=== PATIENT | male | born 1980 | race Two or more races ===

== ENCOUNTER 2024-09-18 18:08 | Emergency (ER) | payer MEDICAID, SELFPAY ==
[2024-09-18 18:36] VITALS: BP 131/78; PULSE 91; RESP 18; TEMP 36.9; O2SAT 94; BMI 24.5
--- NOTE | 2024-09-18 18:49 | EKG_ITS ---
[facility] Test Date: 2024-09-18 Pat Name: CECILE MUÑOZ Department: Room: - Gender: Male Cvicu Rn: : 1980 Requested By: Smith Collins ([facility]) Order Number: [id number] Reading MD: Smith Collins ([facility]) Measurements Intervals Irwin Rate: 95 P: 59 MN: 139 QRS: 28 QRSD: 84 T: 57 QT: 344 QTc: 434 Interpretive Statements SINUS RHYTHM Compared to ECG 08/28/2024 20:33:50 Atrial fibrillation no longer present ST (T wave) deviation no longer present Early repolarization no longer present /store/S0/[id number]/ecg/[id number].pdf
--- NOTE | 2024-09-18 18:50 | PD.EDRME ---
Rapid Medical Screening Exam RME Arrival date/time: 09/18/24 18:08 44-year-old male with past medical history of alcohol withdrawal seizures and everyday drinker presents emergency department complaining of headache and reports has not drank any alcohol since yesterday. Chief Complaint: General Adult/Misc Complain Time Seen by Provider: 09/18/24 18:32 Vital signs: Vital Signs Temperature 98.4 F 09/18/24 18:36 Pulse Rate 91 09/18/24 18:36 Respiratory Rate 18 09/18/24 18:36 Blood Pressure 131/78 H 09/18/24 18:36 Pulse Oximetry (%) 94 L 09/18/24 18:36 Oxygen Delivery Method Room Air 09/18/24 18:36 Vital signs reviewed by provider: Yes
--- NOTE | 2024-09-18 18:51 | XR_ITS ---
Examination: PA lateral chest 2 views Technique: Upright PA lateral chest 2 views Exam date and time: September 18, 2024 1902 hrs. Indications: Chest pain today Findings: Normal heart size No pneumonia or pulmonary edema. The osseous structures are intact Impression: No pneumonia or pulmonary edema
[2024-09-18] MEDS: LORazepam 0.5 MG TABLET 2 MG PO (18:55)
[2024-09-18 19:29] LABS: Basophils # (Auto) 0.1 Thou/mm3 (0.0-0.2); Basophils % (Auto) 1 % (0-2.5); Eosinophils % (Auto) 0 % (0-10); Hematocrit 43.4 % (41.0-53.0); Hemoglobin 14.7 g/dL (13.5-16.0); Immature Granulocytes % (Auto) 0 % (0-0); Immature Granulocytes Auto 0.02 Thou/mm3 (0.00-0.00); Lymphocytes # (Auto) 3.6 Thou/mm3 (1.0-4.8); Lymphocytes % (Auto) 51 % (10-50); Mean Corpuscular HGB Conc 33.9 g/dl (31.0-37.0); Mean Corpuscular Hemoglobin 32.8 pg (25.0-35.0); Mean Corpuscular Volume 97 fL (80-100); Monocytes # (Auto) 0.3 Thou/mm3 (0.0-0.8); Monocytes % (Auto) 4 % (0-12); Neutrophils # (Auto) 3.1 Thou/mm3 (1.8-7.7); Neutrophils % (Auto) 44 % (37-80); Nucleated Red Blood Cell % 0 /100 WBC (0); Platelet Count 380 Thou/mm3 (140-440); RDW Standard Deviation 43.9 fL (35.1-43.9); Red Blood Count 4.48 Miln/mm3 (4.50-5.90); White Blood Count 7.1 Thou/mm3 (3.8-10.6)
[2024-09-18 19:48] LABS: B-Type Natriuretic Peptide 39 pg/mL (0-100)
[2024-09-18 19:49] LABS: Partial Thromboplastin Time 29.3 Seconds (22.0-36.0)
[2024-09-18 20:01] LABS: Alanine Aminotransferase 53 U/L (10-49); Albumin, Serum 5.1 gm/dL (3.5-5.0); Albumin/Globulin Ratio 1.7 (1.2-2.2); Alkaline Phosphatase 82 U/L (46-116); Anion Gap 11 (7-16); Aspartate Amino Transferase 51 U/L (0-34); BUN/Creatinine Ratio 7 Ratio (12-20); Bilirubin,Total 0.3 mg/dL (0.3-1.2); Blood Urea Nitrogen < 5 mg/dL (9-23); Calcium 9.3 mg/dL (8.3-10.6); Calcium (Corrected) 9.3 mg/dL (8.5-10.1); Carbon Dioxide 28.8 mMol/L (20.0-31.0); Chloride 106 mMol/L (98-107); Creatinine (Component) 0.7 mg/dL (0.6-1.3); Estimated Creatinine Clearance 136.1 mL/min (>60); Glucose 103 mg/dL (74-106); Magnesium 2.3 mg/dL (1.6-2.6); Osmolality,Calculated 287 (275-295); Potassium 4.2 mMol/L (3.4-5.1); Sodium 146 mMol/L (136-145); Total Protein 8.1 gm/dL (5.7-8.2); Troponin I < 0.002 ng/mL (0.0-0.045); eGFR > 60 See Note
[2024-09-18 20:58] LABS: Alcohol, Blood Medical 408.2 mg/dL (0-10.0)
[2024-09-18 21:01] LABS: Collection Type, Urine Clean Catch; Squamous Epithelial Cell,Urine 0 /hpf (0-5)
[2024-09-18 21:10] LABS: Bilirubin,Urine Negative (Negative); Blood,Urine Negative (Negative); Clarity,Urine Clear (Clear/Hazy); Color,Urine Colorless (Lt Yel-Yel); Glucose, Urine Negative (Negative); Hyaline Casts,Urine < 1 /hpf (0-1); Ketones,Urine Negative (Negative); Leukocyte Esterase,Urine Negative (Negative); Nitrite,Urine Negative (Negative); Protein,Urine Trace (Neg - Trace); RBC,Urine 1 /hpf (0-3); Specific Gravity,Urine 1.011 (1.001-1.035); Urobilinogen,Urine Negative mg/dL (0.0-1.0); WBC,Urine < 1 /hpf (0-5)
[2024-09-18 21:17] LABS: Amphetamine/Methamp Scrn,U Negative (Negative); Barbiturate Screen,Urine Negative (Negative); Benzodiazepines Screen,Urine Negative (Negative); Benzoylecgonine Screen, Ur Negative (Negative); Fentanyl Screen,Urine Negative (Negative); Opiate Screen,Urine Negative (Negative); THC Screen,Urine Negative (Negative)
--- NOTE | 2024-09-18 21:35 | EDNOTE_ITS ---
<Statement entered by My Naidu MD - 09/18/24 22:03> As co-signing physician, I was present and available for consult prn. I concur with the plan and care as documented by the midlevel provider. ED General RME/HPI General Chief complaint: General Adult/Misc Complain Stated complaint: FAMILY WORRIED PATIENT WILL HURT HIMSELF Time Seen by Provider: 09/18/24 18:32 Arrival date/time: 09/18/24 18:08 CC: Headache HPI patient admits to drinking on a daily basis family members at bedside with the patient states that he is not reliable and whether he states when he does or does not drink. Patient swears he did not drink anything today however patient has mildly slurred speech but is walking without a stagger. Patient has no specific complaints of pain. RME / HPI RME / HPI narrative: 09/18/24 18:08 44-year-old male with past medical history of alcohol withdrawal seizures and everyday drinker presents emergency department complaining of headache and reports has not drank any alcohol since yesterday. Related Data Allergies Allergy/AdvReac Type Severity Reaction Status Date / Time No Known Allergies Allergy Verified 09/18/24 18:10 Review of Systems Review of Systems Narrative Review of Systems: GEN: No fever, no chills, no weight loss EYES: No discharge, no visual changes, no pain HEENT: No ear pain, no congestion, no sore throat PULM: No shortness of breath, no cough, no congestion CV: No chest pain, no dyspnea on exertion, no palpitations GI: No nausea, no vomiting, no diarrhea, no pain, no constipation : No frequency, no urgency, no dysuria MUSC/SKEL: No joint pain, no back pain SKIN: No rash PSYCH: No hallucinations, no depression HEME/LYMPH: No easy bleeding or bruising tendencies NEURO: No weakness, no headache ED Exam Narrative Physical exam: [General: Appears not in any acute distress Head normocephalic HEENT: Eyes: Pupil on the right is PERRLA left eye is opaque over, nonresponding all other subsystems HEENT are within acceptable limits Neck is supple nontender Chest equal chest rise nontender to palpation Respiratory: Clear to auscultation no wheezes crackles or rubs CV: Rate rhythm is regular no murmurs rubs or clicks Abdomen is soft nontender no masses positive bowel sounds all 4 quadrants Back: No CVA tenderness no spinous process tenderness from cervical spine thoracic and lumbar spine Skin: Intact no petechiae rash induration ulceration or crepitus Extremities: Moving all extremity against resistance cap refill less than 2 seconds neurosensory intact Neuro: Awake alert oriented x3 Glascow coma 15 no focal deficits] no slurred speech articulating clearly in Bahraini. Course Quality Measures none Orders Category Date Time Status EKG (ED ONLY) *Do not use* NOW Care 09/18/24 18:49 Completed EKG (ED Only) Stat Exams 09/18/24 18:49 Draft XR chest 2V Stat Exams 09/18/24 18:51 Completed Alcohol, Blood Medical Stat Lab 09/18/24 19:19 Completed B-Type Natriuretic Peptide Stat Lab 09/18/24 19:19 Completed CBC Stat Lab 09/18/24 19:19 Completed Comprehensive Metabolic Panel Stat Lab 09/18/24 19:19 Completed Drug Screen,Urine Stat Lab 09/18/24 19:44 Completed Magnesium Stat Lab 09/18/24 19:19 Completed Partial Thromboplastin Time Stat Lab 09/18/24 19:19 Completed Prothrombin Time with INR Stat Lab 09/18/24 19:19 Completed Troponin I Stat Lab 09/18/24 19:19 Completed Urinalysis Stat Lab 09/18/24 19:44 Received LORazepam [Ativan] Med 09/18/24 18:49 Discontinued 2 mg PO X1 ONE Vital Signs Vital signs: Vital Signs Temperature 98.4 F 09/18/24 18:36 Pulse Rate 91 09/18/24 18:36 Respiratory Rate 18 09/18/24 18:36 Blood Pressure 131/78 H 09/18/24 18:36 Pulse Oximetry (%) 94 L 09/18/24 18:36 Oxygen Delivery Method Room Air 09/18/24 18:36 [facility] Patient data External records reviewed:: [facility] previous records Clinical information provided by:: patient and family Social determinants that could affect healthcare access:: none Patient has the following chronic illnesses:: Alcoholism How is presenting disease/condition affected by chronic disease/condition?: e xacerbated by Evaluation data The following diagnostics were reviewed and interpreted by me:: lab results Lab and/or radiology exams considered but not ordered:: CBC shows no acute leukocytosis anemia thrombocytopenia Coags are all within acceptable limits troponin is negative Alcohol level is 408 CMP shows a mildly elevated ALT AST, no other electrolyte imbalances renal impairment elevated T. bili. Interpretation Summary: Acute alcohol intoxication Medications Medications considered but not ordered:: None Medication administrations:: Medication Administration History Discontinued Medications Lorazepam (Lorazepam 0.5 Mg Tablet) 2 mg PO X1 ONE Stop: 09/18/24 18:50 Last Admin: 09/18/24 18:55 Dose: 2 mg Documented By: OA None Consultations Consultation(s) initiated? (list below): No Diagnosis Differential Diagnosis ED Complaint MDM: Acute alcohol intoxication electrolyte imbalances clotting abnormalities Most likely diagnosis given after review of the tests above:: Acute alcohol intoxication Admission Indicated Admission indicated?: not indicated Explain why admission is indicated or not indicated:: Stable for outpatient follow-up Admission Request Was there a request for admission?: No Disposition Plan Disposition Plan: Discharge Discharge Attestation Discharge Attestation: The patient and all family members were given an opportunity to ask questions and understood the discharge instructions. Discharge instructions specifically effects, indications for sooner follow up or return to the emergency department, and the expected course of current diagnosis. Patient condition: Stable Medical Decision Making Differential Diagnosis Differential Diagnosis: Acute alcohol intoxication electrolyte imbalances clotting abnormalities Lab Data 09/18/24 19:19 09/18/24 19:19 Labs: Lab Results 09/18/24 09/18/24 Range/Units 19:19 19:44 WBC 7.1 (3.8-10.6) Thou/mm3 RBC 4.48 L (4.50-5.90) Miln/mm3 Hgb 14.7 (13.5-16.0) g/dL Hct 43.4 (41.0-53.0) % MCV 97 (80-100) fL MCH 32.8 (25.0-35.0) pg MCHC 33.9 (31.0-37.0) g/dl RDW Std Deviation 43.9 (35.1-43.9) fL Plt Count 380 D (140-440) Thou/mm3 Neut % (Auto) 44 (37-80) % Lymph % (Auto) 51 H (10-50) % Mills % (Auto) 4 (0-12) % Eos % (Auto) 0 (0-10) % Baso % (Auto) 1 (0-2.5) % Neut # (Auto) 3.1 (1.8-7.7) Thou/mm3 Lymph # (Auto) 3.6 (1.0-4.8) Thou/mm3 Mills # (Auto) 0.3 (0.0-0.8) Thou/mm3 Eos # (Auto) 0.0 (0.0-0.5) Thou/mm3 Baso # (Auto) 0.1 (0.0-0.2) Thou/mm3 Immature Gran # (Auto) 0.02 H (0.00-0.00) Thou/mm3 Absolute Nucleated RBC 0.00 (0.00-0.00) Thou/mm3 Immature Gran % 0 (0-0) % Nucleated RBC % 0 (0) /100 WBC PT 11.0 (9.0-12.2) Seconds INR 1.0 (0.9-1.3) APTT 29.3 (22.0-36.0) Seconds Sodium 146 H (136-145) mMol/L Potassium 4.2 (3.4-5.1) mMol/L Chloride 106 (98-107) mMol/L Carbon Dioxide 28.8 (20.0-31.0) mMol/L Anion Gap 11 (7-16) BUN < 5 L (9-23) mg/dL Creatinine 0.7 (0.6-1.3) mg/dL Estim Creat Clear Calc 136.1 (>60) mL/min eGFR > 60 (60 - ) See Note BUN/Creatinine Ratio 7 L (12-20) Ratio Glucose 103 (74-106) mg/dL Calculated Osmolality 287 (275-295) Calcium 9.3 (8.3-10.6) mg/dL Corrected Calcium 9.3 (8.5-10.1) mg/dL Magnesium 2.3 (1.6-2.6) mg/dL Total Bilirubin 0.3 (0.3-1.2) mg/dL AST 51 H (0-34) U/L ALT 53 H (10-49) U/L Alkaline Phosphatase 82 (46-116) U/L Troponin I < 0.002 (0.0-0.045) ng/mL B-Natriuretic Peptide 39 (0-100) pg/mL Total Protein 8.1 (5.7-8.2) gm/dL Albumin 5.1 H (3.5-5.0) gm/dL Globulin 3.0 (2.3-3.5) gm/dL Albumin/Globulin Ratio 1.7 (1.2-2.2) Urine Opiates Screen Negative (Negative) Urine Fentanyl Screen Negative (Negative) Ur Barbiturates Screen Negative (Negative) U Amphetamin/Meth Scrn Negative (Negative) U Benzodiazepines Scrn Negative (Negative) U Cocaine Metab Screen Negative (Negative) U Marijuana (THC) Screen Negative (Negative) Ethyl Alcohol 408.2 H* (0-10.0) mg/dL Discharge Plan Plan Patient Disposition: HOME (Self Care) Patient condition on transfer: Stable Prescriptions/Referrals Referrals: No Primary/Family,Physician [Primary Care Provider] - In 1 week Nemesio Day MD [Physician] - In 1 week Problem List Clinical Impression: Acute alcohol intoxication Patient/Caregiver Discharge Instructions Education Materials: ED Alcohol Intoxication Additional Instructions: Follow-up with your primary care provider consider outpatient resources. Print Language: Bahraini Stand Alone Forms: Nahomi Award Info., Patient Portal Info Letter, Work/School Release PA/PLANNING AND ANALYSIS MANAGER Supervising Physician PA/PLANNING AND ANALYSIS MANAGER Supervising Physician: Armando Duncan ENP
[2024-09-18 21:46] VITALS: RESP 18
== END 2024-09-18 21:48 | disposition home or self-care (01) ==
PROVIDERS: Emergency Provider Emergency Medicine
DX: F10.129 Alcohol abuse with intoxication, unspecified (principal); Y90.8 Blood alcohol level of 240 mg/100 ml or more; R07.9 Chest pain, unspecified
CPT/HCPCS: 36415; 71046; 80053; 80307; 80320; 81001; 83735; 83880; 84484; 85025; 85610; 85730; 93005; 99283; A9270; G0480